=== PATIENT | male | born 1960 | race Caucasian/White ===

== ENCOUNTER 2022-06-26 14:50 | Emergency (ER) | payer BC, SELFPAY ==
[2022-06-26 14:50] VITALS: BP 173/121; PULSE 60; RESP 18; TEMP 36.6; O2SAT 98
[2022-06-26 15:03] VITALS: BP 173/126; PULSE 60; RESP 18; TEMP 36.6; O2SAT 98
--- NOTE | 2022-06-26 15:11 | ED.GENADULT ---
HPI - General Adult General Chief complaint: Ear Stated complaint: foreign body in ear Time Seen by Provider: 06/26/22 15:11 History of Present Illness HPI narrative: The patient is a 62-year-old male wears hearing aids. He has not been able to hear from his left ear for approximately 1-2 weeks. He had an audiology appointment today. They noticed foreign body in his left ear, and end of a Q-tip or gauze. He did last flush his ears approximately 1 week ago. That did not make a difference with respect to his hearing from the left ear. He does wear a hearing aid in the right ear which is working well. When he put the hearing aid in the left ear, it did not result in any improvement in his hearing. No other complaints. No fevers or chills. No drainage from the ears. Related Data Home Medications Medication Instructions Recorded Confirmed No Home Medications 06/26/22 06/26/22 Allergies Allergy/AdvReac Type Severity Reaction Status Date / Time No Known Allergies Allergy Unknown Unverified 06/26/22 15:13 Review of Systems Review of Systems: All systems reviewed & are unremarkable except as noted in HPI and below Constitutional: Constitutional: Reports no additional constitutional complaints, Denies anorexia, Denies body ache(s), Denies chills, Denies excessive sweating, Denies fatigue, Denies fever(s), Denies frequent falls, Denies headache(s), Denies malaise and Denies poor appetite Eyes: Eyes: Reports no additional eye complaints, Denies blurry vision, Denies change in vision, Denies irritation, Denies itchy eyes and Denies photophobia ENT: Reports system reviewed and no additional complaints, except as documented, Denies change in voice, Denies dysphagia, Denies vertigo, Denies dizziness, Denies ear discharge, Denies headache(s), Reports hearing loss ( Bilaterally worse left), Denies hoarseness, Denies nasal congestion, Denies neck pain, Denies sinus pressure, Denies sore throat and Denies throat swelling Cardiovascular: Cardiovascular: Reports no additional cardiovascular complaints, Denies chest pain, Denies syncope, Denies rapid heart rate, Denies irregular heart rhythm, Denies leg edema, Denies dyspnea and Denies slow heart rate Respiratory: Respiratory: Reports no additional respiratory complaints, Denies cough, Denies dyspnea, Denies stridor and Denies wheezing Gastrointestinal: Gastrointestinal: Reports no additional gastrointestinal complaints, Denies abdominal pain, Denies melena, Denies hematochezia, Denies dysphagia, Denies diarrhea, Denies nausea and Denies vomiting Genitourinary: Genitourinary: Denies hematuria, Denies oliguria, Denies dysuria, Denies flank pain, Denies urinary frequency and Denies urinary urgency Musculoskeletal: Musculoskeletal: Reports no additional musculoskeletal complaints, Denies abnormal gait, Denies back pain, Denies myalgias, Denies arthralgias, Denies joint swelling, Denies limited range of motion, Denies muscle cramps, Denies muscle weakness, Denies neck pain and Denies numbness Integumentary/Breasts: Skin/Breast: Reports system reviewed and no additional complaints, except as docu, Denies breast pain, Denies change in pigmentation, Denies pruritus, Denies erythema and Denies wounds Neurologic: Reports system reviewed and no additional complaints, except as documented, Reports Normal hearing present, Denies Abnormal speech present, Denies abnormal gait, Denies confusion, Denies vertigo, Denies dizziness, Denies syncope, Denies frequent falls, Denies headache(s), Denies focal weakness, Denies numbness and Denies paresthesias Psychiatric: Psychiatric: Reports no additional psychiatric complaints and Denies confusion Endocrine: Endocrine: Reports no additional endocrine complaints, Denies cold intolerance, Denies excessive sweating, Denies fatigue and Denies heat intolerance Hematologic/Lymphatic: Hematologic/Lymphatic: Reports no additional hematologic/lymphatic complaints, Denies easy ble
[2022-06-26 15:40] VITALS: BP 173/126; PULSE 60; RESP 18; TEMP 36.6; O2SAT 98
== END 2022-06-26 15:42 | disposition home or self-care (01) ==
LOC: CHSED 15:28
PROVIDERS: Emergency Provider Emergency Medicine; PCP Internal Medicine
DX: T16.2XXA Foreign body in left ear, initial encounter (principal); F17.200 Nicotine dependence, unspecified, uncomplicated; X58.XXXA Exposure to other specified factors, initial encounter
CPT/HCPCS: 69200; 99282

== ENCOUNTER 2022-12-25 13:24 | Emergency (ER) | payer BC, SELFPAY ==
--- NOTE | ~2022-12-25 | XR_ITS ---
EXAMINATION: XR foot LT min 3V DATE: 12/25/2022 14:42 INDICATION: Left foot pain. Injury. TECHNIQUE: 3 views of left foot were obtained. COMPARISON: Left calcaneus radiographs 11/21/2013 FINDINGS: Bone alignment is normal. No fracture. There is mild osteoarthritis of first metatarsophala ngeal joint and some of the interphalangeal joints. There are enthesophytes at the posterior and plan tar aspects of calcaneal tuberosity. IMPRESSION: 1. Mild polyarticular osteoarthritis. Reviewed, dictated and finalized at location A.
--- NOTE | ~2022-12-25 | CT_ITS ---
EXAMINATION: CT foot LT wo con DATE: 12/25/2022 15:10 INDICATION: Left foot swelling and pain. TECHNIQUE: Computed tomography (CT) of the left foot was performed without intravenous contrast. Auto mated exposure control and iterative reconstruction technique were employed. The dose-length product was 809.38 mGy-cm. COMPARISON: Left foot radiographs 12/25/2022 FINDINGS: Bone alignment is normal. No fracture. There is mild osteoarthritis of first metatarsophala ngeal joint and many of the interphalangeal joints and midfoot joints. There is moderate ankle joint osteoarthritis. There is enlargement of the distal Achilles tendon, consistent with tendinopathy. The re is an enthesophyte at the calcaneal attachment. There is heterotopic ossification distal to medial and lateral malleoli. There is soft tissue swelling of the foot and ankle, worst at the dorsal foot. IMPRESSION: 1. Particular osteoarthritis. 2. Severe distal Achilles tendinopathy. Reviewed, dictated and finalized at location A.
[2022-12-25 13:50] VITALS: BP 138/70; PULSE 89; RESP 18; TEMP 37.1; O2SAT 97
--- NOTE | 2022-12-25 15:11 | ED.GENADULT ---
HPI - General Adult General Chief complaint: Skin/Abscess/Foreign Body Stated complaint: L foot pain/Possible spider bite Time Seen by Provider: 12/25/22 14:20 Source: patient Mode of arrival: ambulatory Limitations: no limitations History of Present Illness HPI narrative: Patient is 62-year-old white male said he went to bed fine and then woke up around 1 or 2 in the morning pain in his left foot when he woke up this morning he had more pain and bruising over the dorsal aspect of his left foot with diffuse swelling of his foot and ankle. He had taken ibuprofen at 2:00 a.m.. Denies any trauma. He did have some trauma to her 3 weeks ago when he stubbed his little toe but had no residual problems after that. Says the pain is a 2/10 if he lays still and a 10/10 if he walks on it. He has been eating and drinking stooling and voiding fine thought maybe he had a fever last night because he felt warm and a little chilled. Denies any shortness of breath cough runny nose sore throat or bleeding or other bruising besides his foot. Denies any weakness or numbness. It hurts to walk on it. Denies any problems talking seeing or hearing. He says he is generally healthy denies any heart lung kidney liver disease diabetes hypertension thyroid disease are in asthma. Takes a multi vitamin an aspirin a day. Denies any other complaints. Related Data Allergies Allergy/AdvReac Type Severity Reaction Status Date / Time No Known Allergies Allergy Unknown Unverified 06/26/22 15:13 Review of Systems Review of Systems: All systems reviewed & are unremarkable except as noted in HPI and below [facility] Family History Family History Father Diabetes mellitus Hypertension Social History Social History Smoking status: Light tobacco smoker Alcohol intake: current Exam Narrative: ? White Male patient no apparent distress.? Head normocephalic, atraumatic.? Eyes conjunctiva pink sclera nonicteric.? Extraocular movements are intact.? Ears externally normal.? Oropharynx is clear with moist mucous membranes without exudates.? Neck is supple nontender no lymphadenopathy.? Back is nontender.? Lungs are clear.? Heart is regular rate and rhythm without murmurs gallops or rubs.? Chest wall is nontender.? Abdomen is soft and nontender no hepatosplenomegaly or masses no CVA tenderness no abdominal bruits.? Extremities: Left foot has ecchymosis over the distal 2nd 3rd and 4th meta tarsal area which is tender his foot is diffusely tender and his ankle is diffusely tender he has mild swelling of the distal leg. His left foot and distal leg is warm to touch and diffusely swollen. DP and PT pulses are +2 equal bilateral. Both his Achilles tendons are deformed and mildly tender.? Skin is warm and dry without rashes or lesions.? Neurological patient is alert and oriented x4.? Motor and sensory grossly intact.? Gait is antalgic. Course Vital Signs Vital signs: Vital Signs Temperature 37.1 C 12/25/22 13:50 Pulse Rate 89 12/25/22 13:50 Respiratory Rate 18 12/25/22 13:50 Blood Pressure 138/70 12/25/22 13:50 Pulse Oximetry 97 12/25/22 13:50 Oxygen Delivery Room Air 12/25/22 13:50 Temperature 37.1 C 12/25/22 13:50 Pulse Rate 89 12/25/22 13:50 Respiratory Rate 18 12/25/22 13:50 Blood Pressure 138/70 12/25/22 13:50 Pulse Oximetry 97 12/25/22 13:50 Oxygen Delivery Room Air 12/25/22 13:50 Medical Decision Making [facility] Narrative Medical decision making narrative: patient was placed in room 5 history and physical was done. X-ray of his left foot was done which showed polyarticular arthritis no fractures. He was then sent for a CT of his left foot. WBCs 31.5 H&H was normal platelets were normal.? Coags were normal. Creatinine 1.73 GFR 40, albumin 3.2 rest of CMP was normal X-ray left foot showed ?Bone alig
[2022-12-25 15:24] LABS: Hemoglobin 15.3 g/dL (14.0-18.0); Mean Corpuscular HGB Conc 34.8 g/dL (32.0-36.0); Mean Corpuscular Hemoglobin 32.4 pg (27.0-31.0); Mean Corpuscular Volume 93.2 fL (78.0-102.0); Mean Platelet Volume 10.1 fl (8.7-11.0); Platelet Count Result 194 K/mm3 (150-420); Red Blood Count 4.72 M/mm3 (4.70-6.10); Red Cell Distribution Width 13.8 % (11.6-14.4)
[2022-12-25 15:29] LABS: White Blood Count 31.5 K/mm3 (4.8-10.8)
[2022-12-25 15:39] LABS: INR 1.1; Partial Thromboplastin Time 29.3 SEC (23.90-30.70); Prothrombin Time 11.8 Seconds (9.50-12.10)
[2022-12-25 15:50] LABS: Alanine Aminotransferase 18 U/L (16-63); Albumin Level 3.2 g/dL (3.4-5.0); Alkaline Phosphatase 75 U/L (46-116); Anion Gap 11 mmol/L (8-16); Aspartate Amino Transferase 17 U/L (15-37); Bilirubin,Total 0.9 mg/dL (0.00-1.00); Blood Urea Nitrogen 18 mg/dL (7-18); Calcium 8.5 mg/dL (8.5-10.1); Carbon Dioxide 27 mmol/L (21-32); Chloride 104 mmol/L (98-108); Estimated CRCL calculation 51 ml/min; Estimated Glomerular Filt Rate 40; Glucose 108 mg/dL (70-99); Osmolality Calculated 296 mOsm/kg (285-295); Potassium 4.4 mmol/L (3.5-5.1); Sodium 142 mmol/L (136-145); Total Protein 6.7 g/dL (6.4-8.2)
[2022-12-25 16:30] VITALS: BP 140/74; PULSE 84; RESP 20; TEMP 37.1; O2SAT 98
[2022-12-25] MEDS: cefTRIAXone 1 GM, LIDOCAINE HCL 1% LOCAL INJ 2.1 ML IM (16:33)
== END 2022-12-25 16:35 | disposition home or self-care (01) ==
PROVIDERS: Emergency Provider Emergency Medicine; PCP Internal Medicine
DX: L03.116 Cellulitis of left lower limb (principal); S90.32XA Contusion of left foot, initial encounter; M19.072 Primary osteoarthritis, left ankle and foot; D72.829 Elevated white blood cell count, unspecified; W22.09XA Striking against other stationary object, initial encounter
CPT/HCPCS: 36415; 73630; 73700; 80053; 85027; 85610; 85730; 96372; 99284; J0696

== ENCOUNTER 2022-12-31 15:10 | Inpatient (IN) | payer BC, SELFPAY ==
--- NOTE | ~2022-12-31 | CT_ITS ---
EXAMINATION: CT foot LT w con DATE: 01/01/2023 10:34 INDICATION: Left foot swelling and pain. TECHNIQUE: Computed tomography (CT) of the left foot was performed with 100 mL Omnipaque 350 intraven ous contrast. Automated exposure control and iterative reconstruction technique were employed. The do se-length product was 776.91 mGy-cm. COMPARISON: Left foot radiographs 12/25/2022, CT 12/25/2022 FINDINGS: There is a skin defect anterior to the distal tibia. There is skin thickening and subcutane ous fat stranding in the dorsum of the foot. There skin blisters in the dorsum of the foot. There is severe distal Achilles tendinopathy. Bone alignment is normal. No fracture. There is moderate osteoar thritis of first metatarsophalangeal joint and mild osteoarthritis of ankle joint, subtalar joint, an d some the interphalangeal joints. IMPRESSION: 1. Cellulitis of left foot with skin blisters in the dorsum of the foot. 2. No evidence of osteomyelitis. Reviewed, dictated and finalized at location A.
[2022-12-31 15:17] VITALS: BP 159/102; PULSE 85; RESP 24; TEMP 36.6; O2SAT 98
[2022-12-31] MEDS: TETANUS,DIPHTHERIA,AC PERTUSSIS ADULT 0.5 ML (ADACEL) IM (15:47)
[2022-12-31 15:49] LABS: Hematocrit 46.9 % (40.0-54.0); Hemoglobin 15.9 g/dL (14.0-18.0); Mean Corpuscular HGB Conc 33.9 g/dL (32.0-36.0); Mean Corpuscular Hemoglobin 31.4 pg (27.0-31.0); Mean Corpuscular Volume 92.7 fL (78.0-102.0); Mean Platelet Volume 10.1 fl (8.7-11.0); Platelet Count Result 334 K/mm3 (150-420); Red Blood Count 5.06 M/mm3 (4.70-6.10); Red Cell Distribution Width 13.5 % (11.6-14.4); White Blood Count 13.2 K/mm3 (4.8-10.8)
[2022-12-31 16:03] LABS: Partial Thromboplastin Time 28.5 SEC (23.90-30.70); Prothrombin Time 11.2 Seconds (9.50-12.10)
[2022-12-31 16:04] LABS: Alanine Aminotransferase 25 U/L (16-63); Albumin Level 2.7 g/dL (3.4-5.0); Alkaline Phosphatase 114 U/L (46-116); Anion Gap 11 mmol/L (8-16); Aspartate Amino Transferase 18 U/L (15-37); Bilirubin,Total 0.3 mg/dL (0.00-1.00); Blood Urea Nitrogen 25 mg/dL (7-18); Carbon Dioxide 24 mmol/L (21-32); Chloride 106 mmol/L (98-108); Estimated CRCL calculation 82 ml/min; Estimated Glomerular Filt Rate > 60; Glucose 109 mg/dL (70-99); Osmolality Calculated 297 mOsm/kg (285-295); Potassium 3.8 mmol/L (3.5-5.1); Sodium 141 mmol/L (136-145); Total Protein 7.5 g/dL (6.4-8.2)
[2022-12-31 16:07] LABS: Lactic Acid Reflex 0.7 mmol/L (0.4-2.0)
--- NOTE | 2022-12-31 16:07 | ED.SKABFB ---
HPI - Skin/Abscess/Foreign Bdy General Chief complaint: Skin/Abscess/Foreign Body Stated complaint: left foot bruising, swelling, pain Time Seen by Provider: 12/31/22 15:25 Source: patient Mode of arrival: wheelchair Limitations: no limitations History of Present Illness HPI narrative: this is a 62 year male that presents with some left lower extremity warmth and tenderness with some left anterior foot blister which appears to be a blood blister symptoms started approximately 1 week ago and was seen in the ER and started on p.o. Augmentin, had a follow-up with his primary care today and appears that blood blister has developed anterior surface of his left foot and cellulitis that extends up to his mid navarro that is red warm and tender with no calf pain or calf tenderness has a good strong brisk pedal pulse on the left. Patient was taking his p.o. antibiotics and has had no significant relief, patient is currently afebrile but does feel warm to touch. Otherwise no chest pain no shortness of breath no abdominal pain no nausea vomiting. MD complaint: abscess/boil Onset (ago): day(s) Tetanus up to date: no Location: LLE and L foot Severity: moderate Severity scale (1-10): 8 Quality: burning and aching Pain Consistency: constant Related Data Allergies Allergy/AdvReac Type Severity Reaction Status Date / Time No Known Allergies Allergy Unknown Verified 12/31/22 15:44 Review of Systems Review of Systems: All systems reviewed & are unremarkable except as noted in HPI and below PMFSH Past Medical History Medical History Patient denies medical problems Family History Family History Father Diabetes mellitus Hypertension Social History Social History Smoking status: Former smoker Additional smoking assessment comments: Quit 25yrs ago. Smokes occasional cigar. Alcohol intake: current Exam Const: General: no acute distress Nutritional Appearance: well nourished Orientation/consciousness: patient oriented x3 Limitations: no limitations Neck: Neck: normal visual inspection and no lymphadenopathy Chest: Chest palpation & inspection: normal inspection of the chest Resp: Effort & Inspection: normal respiratory effort Auscultation: clear to auscultation bilaterally Cardio: Rate: regular rate Rhythm: regular rhythm GI: Auscultation: normal bowel sounds : General: Yes bladder normal to palpation Skin: Wounds: wounds noted Other: a blister anterior left foot but is tender and there is tenderness with erythema and redness with some swelling of his left leg with no calf pain no calf tenderness. Neuro: General: patient oriented x3 Cranial nerves: Yes Nystagmus not present Extrem: General: edema Course Course Emergency Course: Patient has a cellulitis with a warm red left lower extremity with a blister to his anterior left foot, labs reviewed white count was [id number], patient is afebrile and patient received a dose of IV ceftriaxone. Vital Signs Vital signs: Vital Signs Temperature 36.6 C 12/31/22 15:17 Pulse Rate 85 12/31/22 15:17 Respiratory Rate 24 H 12/31/22 15:17 Blood Pressure 159/102 H 12/31/22 15:17 Pulse Oximetry 98 12/31/22 15:17 Oxygen Delivery Room Air 12/31/22 15:17 Temperature 36.6 C 12/31/22 15:17 Pulse Rate 85 12/31/22 15:17 Respiratory Rate 24 H 12/31/22 15:17 Blood Pressure 159/102 H 12/31/22 15:17 Pulse Oximetry 98 12/31/22 15:17 Oxygen Delivery Room Air 12/31/22 15:17 MDM - Skin/Abscess/Foreign Bdy Lab Data 12/31/22 15:43 12/31/22 15:43 Labs: Lab Results 12/31/22 Range/Units 15:43 WBC 13.2 H (4.8-10.8) K/mm3 RBC 5.06 (4.70-6.10) M/mm3 Hgb 15.9 (14.0-18.0) g/dL Hct 46.9 (40.0-54.0) % MCV 92.7 (78.0-102.0) fL MCH
[2022-12-31 16:09] LABS: CRP 7.6 mg/dL (0.0-0.9)
[2022-12-31 16:14] LABS: Band Neutrophils Percent 0 % (0-6); Basophils Absolute Manual 0.13 K/mm3 (0-0.1); Basophils Percent Manual 1 % (0-1); Eosinophils Absolute Manual 0.39 K/mm3 (0.02-0.5); Eosinophils Percent Manual 3 % (1-6); Lymphocytes Absolute Manual 1.98 K/mm3 (1.1-4.5); Lymphocytes Percent Manual 15 % (18-44); Metamyelocytes Percent 2 %; Neutrophils Absolute Manual 8.97 K/mm3 (1.3-6.7); Neutrophils Percent Manual 68 % (46-73); Total Cells Counted 100
[2022-12-31 16:15] LABS: Atypical Lymphocytes Present; Monocytes Absolute Manual 1.45 K/mm3 (0.1-0.90); Monocytes Percent Manual 11 % (3-9); Platelet Estimate Adequate (Adequate); Schistocytes None Seen (NORMAL)
[2022-12-31 16:32] VITALS: BP 154/101; PULSE 76; RESP 20; TEMP 36.4; O2SAT 96
[2022-12-31 16:55] VITALS: BP 160/98; PULSE 85; RESP 16; TEMP 36.4; O2SAT 97; BMI 33.0
--- NOTE | 2022-12-31 16:55 | ADMGEN ---
This patient, Lester D Parrish, was admitted to 2nd Floor Room 205-1. Patient/family oriented to hospital policies and general routines including ID bracelet, bed and alarms, visiting hours, pain management, procedures, bathroom and other care routines, personal items, smoking policy, room service/diet, and visiting hours. Information on how to activate the Rapid Response Team has been discussed. Patient/Family are encouraged to report perceived risks to care and to ask questions if they do not understand what they are told or what they should do.
[2022-12-31] MEDS: traMADol HCL (*CRX) 50 MG TABLET PO (18:51)
[2022-12-31 20:00] VITALS: PULSE 85; RESP 16; O2SAT 97
[2023-01-01] VITALS (7 sets, daily range): BP systolic 138–178; BP diastolic 78–101; PULSE 65–85; RESP 17–18; TEMP 35.8–36.6; O2SAT 96–97
--- NOTE | 2023-01-01 00:07 | PC.NURSE ---
Pt asleep and respirations are even and unlabored. No signs of discomfort noted
[2023-01-01] MEDS: ACETAMINOPHEN 325 MG TABLET 650 MG PO ×4 (00:24→15:55)
--- NOTE | 2023-01-01 00:58 | PC.NURSE ---
Pt resting quietly and doesnt voice any c/o discomfort.
--- NOTE | 2023-01-01 01:17 | PC.NURSE ---
Pt asleep and no signs of discomfort noted.Tylenol effective in relieving pt's left foot pain
--- NOTE | 2023-01-01 02:00 | PC.NURSE ---
Pt asleep and no signs of discomfort noted.
--- NOTE | 2023-01-01 04:35 | PC.NURSE ---
Pt called and said he was having pain in his left foot again and asked for tylenol. Pt given tylenol 650 mg po to relieve left foot pain
[2023-01-01 05:33] LABS: Hematocrit 44.5 % (40.0-54.0); Hemoglobin 15.1 g/dL (14.0-18.0); Mean Corpuscular HGB Conc 33.9 g/dL (32.0-36.0); Mean Corpuscular Hemoglobin 31.7 pg (27.0-31.0); Mean Corpuscular Volume 93.5 fL (78.0-102.0); Mean Platelet Volume 9.6 fl (8.7-11.0); Platelet Count Result 320 K/mm3 (150-420); Red Blood Count 4.76 M/mm3 (4.70-6.10); Red Cell Distribution Width 13.6 % (11.6-14.4); White Blood Count 10.5 K/mm3 (4.8-10.8)
[2023-01-01 05:55] LABS: Band Neutrophils Percent 0 % (0-6); Basophils Percent Manual 0 % (0-1); Eosinophils Absolute Manual 0.31 K/mm3 (0.02-0.5); Eosinophils Percent Manual 3 % (1-6); Lymphocytes Absolute Manual 1.89 K/mm3 (1.1-4.5); Lymphocytes Percent Manual 18 % (18-44); Metamyelocytes Percent 1 %; Monocytes Absolute Manual 1.47 K/mm3 (0.1-0.90); Monocytes Percent Manual 14 % (3-9); Neutrophils Absolute Manual 6.72 K/mm3 (1.3-6.7); Neutrophils Percent Manual 64 % (46-73)
[2023-01-01 05:56] LABS: Platelet Estimate Adequate (Adequate)
--- NOTE | 2023-01-01 06:02 | PC.NURSE ---
Pt up to the bathroom with the walker and assist of one. Pt passed a small, solid stool and returned to bed. Left remains warm, swollen and tender and was elevated on a pillow.
--- NOTE | 2023-01-01 09:00 | PC.NURSE ---
Using sterile needle, aspirated approximately 3 ml of fluid from blister on top of pt's foot. Per CHOKER SETTER at bedside, Kelsy Dykes, this nurse manipulated blister to drain from aspiration site. Fluid collected sent to lab for culture.
[2023-01-01] MEDS: ENOXAPARIN 40 MG/0.4 ML SYRINGE SUB-Q (09:09)
--- NOTE | 2023-01-01 09:33 | P.PNINF_ITS ---
Pharmacy ID Consult - Stewardship Interventions Type of Interventions: [facility] ID Note: Subjective Pharmacy was consulted by Kelsy Dykes regarding infectious diseases for Lester Parrish. Lester Hampton Parrish is a 62 year old M with concerns regarding purulent SSTI. Background The patient is currently receiving Ceftriaxone 1g. The patient's PMH includes 1 week history of lower extremity cellulitis with potential blister - maybe blood blister and was given Augmentin previously from ER visit ~12/25 without significant relief. Additionally, infection was initially thought to be more cellulitis without purulence however, upon examination, fluid was noted and aspirated revealing a yellow/pale/guevara fluid that was removed and is to be sent for culture for the provider. Patient has been afebrile since arrival and blood cultures have been obtained as well. Laboratory Tests 12/31/22 01/01/23 15:43 05:32 WBC 13.2 H 10.5 Creatinine 1.05 Assessment/Recommendation/Discussion Spoke with provider that this is likely an SSTI like an abscess w/ cellulitis or purulent cellulitis with high likelihood of staphylococcus aureus and given local resistance trends (MRSA rate of 53.5% per 2021 [facility] Antibiogram), Augmentin is not likely to cover the likely pathogen. In order to ensure appropriate coverage, ceftriaxone dose increased to 2g q24h, vancomycin initiated for SSTI and po metronidazole started and ordered. Will follow blood and future fluid culture. Please consider reaching out if there are any additional recommendations needed or new information comes to light. Thank you for the interesting consult. Ti Ferrer, PharmD Infectious Disease/Antimicrobial Stewardship Pharmacist 01/01/23; 0933 WBC 10.5 K/mm3 (4.8-10.8) 01/01/23 05:32 Creatinine 1.05 mg/dL (0.70-1.30) 12/31/22 15:43 Estim Creat Clear Calc 82 ml/min 12/31/22 15:43
[2023-01-01] MEDS: cefTRIAXone 2 GM/NS 100 ML 2 GM/100 ML BAG IVPB (10:12)
--- NOTE | 2023-01-01 12:12 | PM.IMHP ---
H&P: HPI History of Present Illness Date/Time: 01/01/23 12:12 Chief Complaint: left foot pain Narrative: This is a 62 year old that felt pain about 1 week ago in the middle of the night and noticed swelling in his foot. Patient also noticed that the swelling continue to progressively get worse. He reported to the emergency room in which he was informed he had cellulitis and was sent home on augmenting received a injection of antibiotic and went home. Patient has not seen a PCP in years and states that he really does not have much of medical history. while here it was noticed that he has hypertension originally his WBC was 31k currently 10.5 but he has been on antibiotics Looking at his foot he has erythema with bruising noted from his toes to his ankle including fluid filled blister 3-4 different ones that are tout. I did aspirate 2.5 ml of clear yellow fluid and sent to lab for cultures. Patient has been placed on Vancomycin and increased his Rocephin to 2gm and oral Flagyl . If cultures come back positive for pseudomonas we will switch the Rocephin to Cefepime. I discussed this plan with infectious disease pharmacist who is in agreement. I also received permission from patient and discussed his case with DR. Banuelos who is a foot and ankle surgeon who is willing to see him outpatient in his clinic in [facility] . Patient had a CT scan completed in which it show cellulitis at this time with no evidence of osteomyelitis . We will continue to monitor and awaiting results from the cultures. Patient denies any injuries and does not remember any bites and he fishes a lot. Labs continue to look well and we will await culture results. Review of Systems Review of Systems: foot pain with drainage right brusing note All systems reviewed & are unremarkable except as noted in HPI and below [facility] Past Medical History Medical History (Updated 01/21/23 @ 14:09 by Harsha Bravo DO) Pain of left heel Patient denies medical problems Family History Family History Father Diabetes mellitus Hypertension Social History Social History Smoking packs per day: 1 Smoking cigarettes per day: 20.0 Years smoked: 20 Smoking pack-years: 20.00 Smoking status: Former smoker Tobacco type: cigarettes Additional smoking assessment comments: Quit 25yrs ago. Smokes occasional cigar. Alcohol intake: never Substance use: never Lack of Transportation: No Lack of Food: Never True Current Housing: I Have Housing Concerned About Future Housing: No Difficulty Paying Gas/Electric Bills: No Difficulty Paying for Meds: No Currently Unemployed: No Education: Associate Degree Difficulty w/ Childcare or Family Care: No Spiritual care concerns: No Meds Home Medications and Allergies Home Medications Medication Instructions Recorded Confirmed Type docusate sodium 100 mg capsule 100 mg PO Q12H PRN Constipation 01/02/23 Rx tramadol 50 mg tablet 50 mg PO Q6H PRN Pain Rated 4-6 01/02/23 Rx trazodone 50 mg tablet 50 mg PO HS PRN Insomnia 01/02/23 Rx Saccharomyces boulardii 250 mg 250 mg PO BID 01/14/23 History capsule (Florastor) acetaminophen 325 mg capsule 650 mg PO Q6H PRN 01/14/23 History amoxicillin 875 mg-potassium 1 tablet PO Q12H 01/14/23 History clavulanate 125 mg tablet doxycycline hyclate 100 mg tablet 100 mg PO Q12H 01/14/23 History hydrocodone 5 mg-acetaminophen 325 1 tablet PO Q6H PRN 01/14/23 History mg tablet tadalafil 5 mg tablet (Cialis) 5 mg PO DAILY PRN sexual activity 01/14/23 01/14/23 Rx #30 tabs lisinopril 20 mg tablet 20 mg PO DAILY #90 tabs 01/21/23 01/21/23 Rx Allergies Allergy/AdvReac Type Severity Reaction Status Date / Time No Known Allergies Allergy Unknown Verified 01/14/23 13:44 Vital Signs Vital Signs - 24 hr 12/31/22 15:17 12/31/22 16:32 0
[2023-01-01] MEDS: metroNIDAZOLE 250 MG TABLET 500 MG PO ×2 (13:31→21:36)
[2023-01-01] MEDS: amLODIPine BESYLATE 5 MG TABLET PO (13:31)
[2023-01-01] MEDS: traMADol HCL (*CRX) 50 MG TABLET PO (16:57)
[2023-01-01] MEDS: traZODone HCL 50 MG TABLET PO (21:36)
[2023-01-01] MEDS: MORPHINE SULFATE (*CRX) 2 MG/ML INJ IV PUSH (21:36)
[2023-01-01] MEDS: DOCUSATE SODIUM 100 MG CAPSULE PO (21:36)
[2023-01-02] VITALS: BP 154/97; PULSE 65; RESP 17; TEMP 36.7; O2SAT 97
[2023-01-02] MEDS: ACETAMINOPHEN 325 MG TABLET 650 MG PO ×2 (00:37→08:48)
--- NOTE | 2023-01-02 00:38 | PC.NURSE ---
Pt states morphine was not very effective for pain relief, PRN Tylenol given per request.
[2023-01-02] MEDS: metroNIDAZOLE 250 MG TABLET 500 MG PO ×2 (05:20→13:57)
[2023-01-02] MEDS: MORPHINE SULFATE (*CRX) 2 MG/ML INJ IV PUSH (05:21)
[2023-01-02 05:25] LABS: Estimated CRCL calculation 75 ml/min; Estimated Glomerular Filt Rate > 60
[2023-01-02 08:00] VITALS: BP 144/102; PULSE 71; RESP 14; TEMP 36.5; O2SAT 96
[2023-01-02] MEDS: cefTRIAXone 2 GM/NS 100 ML 2 GM/100 ML BAG IVPB (08:41)
[2023-01-02] MEDS: amLODIPine BESYLATE 5 MG TABLET PO (08:48)
[2023-01-02] MEDS: ENOXAPARIN 40 MG/0.4 ML SYRINGE SUB-Q (08:49)
--- NOTE | 2023-01-02 08:58 | PM.IMPN ---
Subjective Date/time seen: 01/02/23 08:58 Objective Data Vital Signs Vital Signs: Vital Signs - 24 hr 01/01/23 11:00 01/01/23 11:02 01/01/23 16:00 Temperature 36.6 C Pulse Rate 85 65 Respiratory Rate 18 Blood Pressure 178/101 H 149/91 H 160/92 H Pulse Oximetry 97 Oxygen Delivery Room Air 01/01/23 19:40 01/02/23 00:00 01/02/23 08:00 Temperature 36.7 C 36.5 C Pulse Rate 65 65 71 Respiratory Rate 18 17 14 Blood Pressure 154/97 H 144/102 H Pulse Oximetry 97 97 96 Oxygen Delivery Room Air Room Air Room Air Intake/Output Intake/Output: Intake & Output 12/30/22 12/31/22 01/01/23 01/02/23 23:59 23:59 23:59 23:59 Intake Total 1010 4050 550 Output Total 500 1225 1200 Balance 510 2825 -650 Meds/Results Medications: Active Medications Generic Name Dose Route Start Last Admin Trade Name Freq PRN Reason Stop Dose Admin Acetaminophen 650 mg 12/31/22 16:28 01/02/23 08:48 Acetaminophen 325 Mg Tablet PO 650 mg Q4H PRN Administration Mild Pain (1-3) or Fever Amlodipine Besylate 5 mg 01/01/23 12:15 01/02/23 08:48 Amlodipine Besylate 5 Mg Tablet PO 5 mg QAM RADHA Administration Docusate Sodium 100 mg 01/01/23 19:31 01/01/23 21:36 Docusate Sodium 100 Mg Capsule PO 100 mg Q12H PRN Administration Constipation Enoxaparin Sodium 40 mg 01/01/23 09:00 01/02/23 08:49 Enoxaparin 40 Mg/0.4 Ml Syringe SUB-Q 40 mg DAILY RADHA Administration Vancomycin HCl 1,500 mg in 500 mls @ 250 mls/hr 01/01/23 10:00 01/01/23 22:37 Vancomycin 1,500 Mg/D5w 500 Ml IVPB Infused Q12HR RADHA Infusion Ceftriaxone Sodium 2 gm in 100 mls @ 200 mls/hr 01/01/23 10:00 01/02/23 08:41 Rocephin 2 Gm/Ns 100 Ml IVPB 100 mls/hr DAILY RADHA Administration Metronidazole 500 mg 01/01/23 14:00 01/02/23 05:20 Metronidazole 250 Mg Tablet PO 500 mg Q8HR RADHA Administration Morphine Sulfate 2 mg 01/01/23 19:31 01/02/23 05:21 Morphine Sulfate (*Crx) 2 Mg/Ml Inj IV PUSH 2 mg Q4H PRN Administration Pain Rated 7-10 Ondansetron HCl 4 mg 12/31/22 16:28 Ondansetron Inj 4 Mg/2 Ml Vial IV PUSH Q6H PRN Nausea And Vomiting Tramadol HCl 50 mg 12/31/22 16:31 01/01/23 16:57 Tramadol Hcl (*Crx) 50 Mg Tablet PO 50 mg Q6H PRN Administration Pain Rated 4-6 Trazodone HCl 50 mg 12/31/22 20:25 01/01/23 21:36 Trazodone Hcl 50 Mg Tablet PO 50 mg HS PRN Administration Insomnia Radiology Results: ITS Impressions Foot CT 01/01/23 10:39 IMPRESSION: 1. Cellulitis of left foot with skin blisters in the dorsum of the foot. 2. No evidence of osteomyelitis. Labs Labs: Laboratory Results - last 24 hr 01/02/23 05:06 Creatinine 1.14 Estim Creat Clear Calc 75 Estimated GFR > 60
[2023-01-02] MEDS: HYDROcodone/acetaminophen (*CRX) 7.5-325 MG TABLET 1 TAB PO (11:40)
--- NOTE | 2023-01-02 12:54 | PM.TDS ---
Transfer Discharge Sum: Prov Provider Date of admission: 01/01/23 12:28 Primary care physician: Dario Joaquin APRN Admitting clinician: Calos Haley MD Attending physician on admission: Denilson Haley Consults: 01/01/23 09:19 Consult Infectious Disease Pharmacist Routine Comment: cellulitis wound fluid blister Attending physician on discharge: Denilson Haley Discharging clinician: David Blanco Anticipated date of transfer: 01/02/23 Receiving physician/facility: [facility]--Dr. Vonda Dominguez, [facility] Hospitalist DS: Admitting Diagnosis Discharge Date 01/02/2023 Admitting Diagnosis Left foot cellulitis with abscess DS: Discharge Diagnosis Discharge Diagnosis (1) Cellulitis: Qualifiers: Laterality: left Site of cellulitis: extremity Site of cellulitis of extremity: lower extremity Qualified Code(s): L03.116 - Cellulitis of left lower limb Code(s): L03.90 - Cellulitis, unspecified Status: Acute (2) Bullae: Code(s): R23.8 - Other skin changes Status: Acute (3) Abscess of skin or subcutaneous tissue: Qualifiers: Laterality: left Site of cutaneous abscess: extremity Site of cutaneous abscess of extremity: lower extremity Qualified Code(s): L02.416 - Cutaneous abscess of left lower limb Code(s): L02.91 - Cutaneous abscess, unspecified Status: Acute Plan Transfer to [facility] to Hospitalist Service with surgical consult (Plastics or Podiatry), vascular services available if needed. Dr. Charles with Plastic Surgery agreed to have Plastic Resident see patient on arrival. Transfer Discharge Sum: Med Medications Active and Home Medications: Home Medications amoxicillin 875 mg-potassium clavulanate 125 mg tablet 1 tablet PO Q12H 10 days #20 tabs 12/25/22 [Rx Confirmed 12/31/22] Active Medications Acetaminophen (Acetaminophen 500 Mg Tablet) 1,000 mg PO Q6H PRN PRN Reason: Pain 1-3 or Fever Hydrocodone Bitart/Acetaminophen (Hydrocodone/Acetaminophen (*Crx) 7.5-325 Mg Tablet) 1 tab PO Q4H PRN PRN Reason: Pain Rated 7-10 Last Admin: 01/02/23 11:40 Dose: 1 tab Amlodipine Besylate (Amlodipine Besylate 5 Mg Tablet) 5 mg PO QAM [facility] Last Admin: 01/02/23 08:48 Dose: 5 mg Docusate Sodium (Docusate Sodium 100 Mg Capsule) 100 mg PO Q12H PRN PRN Reason: Constipation Last Admin: 01/01/23 21:36 Dose: 100 mg Enoxaparin Sodium (Enoxaparin 40 Mg/0.4 Ml Syringe) 40 mg SUB-Q DAILY [facility] Last Admin: 01/02/23 08:49 Dose: 40 mg Vancomycin HCl (Vancomycin 1,500 Mg/D5w 500 Ml) 1,500 mg in 500 mls @ 250 mls/hr IVPB Q12HR [facility] Last Infusion: 01/02/23 11:39 Dose: Infused Ceftriaxone Sodium (Rocephin 2 Gm/Ns 100 Ml) 2 gm in 100 mls @ 200 mls/hr IVPB DAILY [facility] Last Infusion: 01/02/23 09:20 Dose: Infused Metronidazole (Metronidazole 250 Mg Tablet) 500 mg PO Q8HR [facility] Last Admin: 01/02/23 05:20 Dose: 500 mg Morphine Sulfate (Morphine Sulfate (*Crx) 2 Mg/Ml Inj) 2 mg IV PUSH Q4H PRN PRN Reason: Pain Rated 7-10 Last Admin: 01/02/23 05:21 Dose: 2 mg Ondansetron HCl (Ondansetron Inj 4 Mg/2 Ml Vial) 4 mg IV PUSH Q6H PRN PRN Reason: Nausea And Vomiting Tramadol HCl (Tramadol Hcl (*Crx) 50 Mg Tablet) 50 mg PO Q6H PRN PRN Reason: Pain Rated 4-6 Last Admin: 01/01/23 16:57 Dose: 50 mg Trazodone HCl (Trazodone Hcl 50 Mg Tablet) 50 mg PO HS PRN PRN Reason: Insomnia Last Admin: 01/01/23 21:36 Dose: 50 mg Transfer Discharge Sum: Hosp Hospital Course Hospital course: Lester Parrish is a 62 year old male admitted to the hospital for worsening cellulitis with possible abscess formation. Patient reports that a week and a half ago he noticed a red on his fluid and it has progressed steadily with formation an apparent hemorrhagic bullae that has continued to spread despite antibiotics. Patient had been seen on December 25 and started on Augmentin after receiving 1g of IM Rocephin for presu
--- NOTE | 2023-01-02 14:36 | PC.NURSE ---
Patient signed consent to transfer to [facility] room 836. Radiology aware of request to push reports to [facility]. Report given to Shahida from [facility].
--- NOTE | 2023-01-02 15:18 | PC.NURSE ---
Patient transferred to [facility] by [facility]. Able to transfer self to [facility]
== END 2023-01-02 15:10 | disposition short-term general hospital (02) | DRG 603 ==
LOC: CHSED 16:24 → CHS2ND 16:52
PROVIDERS: Nurse Practitioner Family; Admitting Provider Internal Medicine; Emergency Provider Emergency Medicine; PCP Nurse Practitioner Family; Visit Provider Internal Medicine
DX: L03.116 Cellulitis of left lower limb (principal); L02.612 Cutaneous abscess of left foot; R23.8 Other skin changes
CPT/HCPCS: 10160; 36415; 73701; 80053; 82565; 83605; 85025; 85610; 85730; 86140; 87040; 87070; 87205; 90471; 90715; 96365; 96366; 96367; 96372; 99285; A9270; G0378; J0696; J1650; J2270; J3370; Q9967

== ENCOUNTER 2023-01-22 09:49 | Outpatient (CLI) | payer MEDICARE, SELFPAY ==
--- NOTE | ~2023-01-22 | XR_ITS ---
EXAMINATION: XR foot LT min 3V DATE: 01/22/2023 10:10 INDICATION: Left heel pain. Bacterial infection in foot. TECHNIQUE: 4 views of left foot were obtained. COMPARISON: Left foot radiographs 12/25/2022 FINDINGS: Bone alignment is normal. No fracture. There is moderate osteoarthritis of first metatarsop halangeal joint. There is mild osteoarthritis of some the interphalangeal joints and midfoot joints. There is moderate osteoarthritis of third distal interphalangeal joint. There are enthesophytes at th e posterior and plantar aspects of calcaneal tuberosity. There is soft tissue swelling at the Jey s attachment to calcaneus. IMPRESSION: 1. No evidence of osteomyelitis. 2. Polyarticular osteoarthritis. Reviewed, dictated and finalized at location A.
== END 2023-01-22 09:50 | disposition home or self-care (01) ==
LOC: CHSIMG 09:52
PROVIDERS: PCP Family Medicine; Visit Provider Family Medicine
DX: M19.072 Primary osteoarthritis, left ankle and foot (principal); M79.672 Pain in left foot
CPT/HCPCS: 73630

== ENCOUNTER 2023-06-14 07:50 | Outpatient (RCR) | payer MEDICARE, SELFPAY ==
--- NOTE | 2023-06-14 09:08 | OPREHPOC ---
Outpatient Therapy Plan of Care This is a Multidisciplinary Plan of Care that may contain components documented by all disciplines (PT, OT, and ST.) PT Problem 1 PT Problem #1 Knowledge Deficit PT Goal 1 Goal Patient to demonstrate independence with HEP Target Visit 5 PT Problem 2 PT Problem #2 Pain PT Goal 1 Goal Patient to report highest pain at 2/10 at end of day to improve ability to complete house hold tasks Target Visit 10 PT Problem 3 PT Problem #3 Impaired Range of Motion PT Goal 1 Goal Patient to demosntrate 10 deg of L ankle DF AROM to improve ability to ambulate prolonged distances and navigate stairs at PLOF Target Visit 10 PT Problem 4 PT Problem #4 Impaired Strength PT Goal 1 Goal Patient to demonstrate 25 L SL heel raises to improve ability to ambulate to grocery shop without rest Target Visit 10 PT Problem 5 PT Problem #5 Impaired Functional Mobil PT Goal 1 Goal 1. Patient to complete 1200' during 6 min walk test 2. Patient to report ability to ambulate >1 mile to return to previous exercise level 3. Patient to demonstrate 20% improvement on LEFS Target Visit 10
--- NOTE | 2023-06-14 09:09 | PTOPEVAL1 ---
Assessment and note entered by Araceli Aguirre DPT Evaluation Information Assessment Status Evaluation Diagnosis L ankle pain Onset 04/16/23 Subjective Information Patient reports he has had a bone spur for years and then developed an infection in the foot that required a debriedment. He then was having achilles pain following and under went a surgery on 04/16/23 to resect Uche deformity, removal of calcifications and debriedment of tendon tear. He was in a boot until about 2 weeks ago and now is in a tennis shoe. He has difficulty with ambulating prolonged distances and standing for prolonged periods a day. He reports prior to injury he was walking 3+ miles a day. He reports he feels like he is walking with his foot side ways and also has L knee and R hip pain. RTMD mid Fe. Reported Pain Level Pain Score 0: Self Report Assessment PT Clinical Summary Mr. Parrish is a 63 year old male who presents to PT with L ankle pain s/p surgery on 04/16/23. Patient demonstrates decreased L ankle ROM, decreased L ankle strength and impaired gait limiting his ability to grocery shop and complete house hold tasks. He would benefit from skilled PT to address impairments and return to PLOF. Plan of Care Interventions Electrical Stimulation,Gait Training,Hot Pack/Cold Pack,Manual Therapy,Neuro Re-education,Patient/ Caregiver Educati,Therapeutic Activities, Therapeutic Exercise PT Services Indicated Yes Treatment Frequency and 2x weekly for 10 visits Duration These treatments will address the objective and functional deficits as defined above. The patient will be advanced safely and appropriately in order for the patient to progress towards his/her prior level of function. Additional exercises will be introduced and as well as a comprehensive home exercise program upon discharge, if needed, ?to ensure carryover of functional gains achieved in the clinic. This treatment plan has been reviewed and agreement upon by the patient.
--- NOTE | 2023-07-06 08:37 | OPREHPOC ---
Outpatient Therapy Plan of Care This is a Multidisciplinary Plan of Care that may contain components documented by all disciplines (PT, OT, and ST.) PT Problem 1 PT Problem #1 Knowledge Deficit PT Goal 1 Goal Patient to demonstrate independence with HEP Target Visit 5 Progress Met PT Problem 2 PT Problem #2 Pain PT Goal 1 Goal Patient to report highest pain at 2/10 at end of day to improve ability to complete house hold tasks Target Visit 10 Progress Met PT Problem 3 PT Problem #3 Impaired Range of Motion PT Goal 1 Goal Patient to demosntrate 10 deg of L ankle DF AROM to improve ability to ambulate prolonged distances and navigate stairs at PLOF Target Visit 10 Progress Not Met PT Problem 4 PT Problem #4 Impaired Strength PT Goal 1 Goal Patient to demonstrate 25 L SL heel raises to improve ability to ambulate to grocery shop without rest Target Visit 10 Progress Not Met PT Problem 5 PT Problem #5 Impaired Functional Mobil PT Goal 1 Goal 1. Patient to complete 1200' during 6 min walk test 2. Patient to report ability to ambulate >1 mile to return to previous exercise level 3. Patient to demonstrate 20% improvement on LEFS Target Visit 10 Progress Partially Met Comment 1150' on 6 min walk
--- NOTE | 2023-07-06 08:37 | PTOPDC ---
Assessment and note entered by Araceli Aguirre DPT Evaluation Information Assessment Status Discharge Diagnosis L ankle pain Onset 04/16/23 Subjective Information patient reports he has improved since start of PT. He reports he is able to ambulate prolonged distances, navigate stairs and has less pain. He reports he had a knee x-ray yesterday and is hoping to get an injection. He reports independence with HEP. He is leaving for [place] on 07/08. Reported Pain Level Pain Score 0: Self Report Assessment PT Clinical Summary Mr. Parrish was seen for 7 visits of skilled PT with good progression towards goals. He has improved ankle ROM and strength, improved gait and decreased pain. He reports he has improved ambulation distances, improved ability to navigate stairs and decreased pain levels. He reports he is independent with HEP and is appropriate for DC at this time. Plan of Care PT Services Indicated No
== END 2023-07-06 09:04 | disposition home or self-care (01) ==
LOC: CHSPT 07:50
PROVIDERS: Visit Provider Nurse Practitioner
DX: Z48.89 Encounter for other specified surgical aftercare (principal); M76.62 Achilles tendinitis, left leg
CPT/HCPCS: 73562; 97110; 97140; 97150; 97161

== ENCOUNTER 2023-07-05 14:39 | Outpatient (CLI) | payer MEDICARE, SELFPAY ==
--- NOTE | ~2023-07-05 | XR_ITS ---
EXAM: XR knee LT 3V DATE: 07/05/2023 15:00 HISTORY: ANTERIOR PAIN X 20 YEARS . COMPARISON: 12/15/2017. FINDINGS: Normal mineralization. No fracture or dislocation. No lytic or blastic lesion. Severe medi al joint space narrowing. Moderate tricompartmental osteophytosis. Quadriceps enthesopathy. No erosio n or periosteal change. Scattered vascular calcifications. IMPRESSION: Tricompartmental left knee osteoarthritic arthritis, severe in the medial compartment. Reviewed, dictated and finalized at location K. PHERE PORTAL DEVELOPER
== END 2023-07-05 14:40 | disposition home or self-care (01) ==
LOC: CHSIMG 14:41
PROVIDERS: PCP Family Medicine; Visit Provider Family Medicine
DX: M17.12 Unilateral primary osteoarthritis, left knee (principal)
CPT/HCPCS: 73562

== ENCOUNTER 2024-03-02 08:44 | Outpatient (CLI) | payer MEDICARE, SELFPAY ==
[2024-03-02 08:58] LABS: Basophils Absolute Auto 0.05 K/mm3 (0.00-0.10); Basophils Percent Auto 0.5 % (0.0-1.0); Eosinophils Absolute Auto 0.23 K/mm3 (0.02-0.50); Eosinophils Percent Auto 2.3 % (1.0-6.0); Hematocrit 44.7 % (37.0-46.0); Hemoglobin 15.9 g/dL (12.4-15.3); Immature Granulocyte Absolute 0.05 K/mm3 (0.00-0.00); Immature Granulocyte Percent A 0.5 % (0.0-0.0); Lymphocytes Percent Auto 14.9 % (18.0-42.0); Mean Corpuscular HGB Conc 35.6 g/dL (32-36); Mean Corpuscular Hemoglobin 31.9 pg (27.0-31.0); Mean Corpuscular Volume 89.8 fL (78.0-102.0); Mean Platelet Volume 10.1 fl (8.7-11.0); Monocytes Absolute Auto 1.26 K/mm3 (0.10-0.90); Monocytes Percent Auto 12.5 % (2.0-11.0); Neutrophils Absolute Auto 6.98 K/mm3 (1.70-7.20); Neutrophils Percent Auto 69.3 % (50.0-70.0); Platelet Count Result 219 K/mm3 (150-420); Red Blood Count 4.98 M/mm3 (4.70-6.10); Red Cell Distribution Width 13.6 % (11.6-14.4); White Blood Count 10.1 K/mm3 (4.8-10.8)
[2024-03-02 09:49] LABS: Alanine Aminotransferase 28 U/L (16-63); Albumin Level 3.6 g/dL (3.4-5.0); Alkaline Phosphatase 93 U/L (46-116); Anion Gap 10 mmol/L (4-12); Aspartate Amino Transferase 12 U/L (15-37); Bilirubin,Total 0.8 mg/dL (0.00-1.00); Blood Urea Nitrogen 17 mg/dL (7-18); Carbon Dioxide 28 mmol/L (21-32); Chloride 101 mmol/L (98-108); Estimated Glomerular Filt Rate > 60; Glucose 114 mg/dL (70-99); Osmolality Calculated 290 mOsm/kg (285-295); Potassium 4.3 mmol/L (3.5-5.1); Prostate Specific Antigen 2.5 ng/mL (< OR = 4.0); Sodium 139 mmol/L (136-145); Total Protein 6.6 g/dL (6.4-8.2)
[2024-03-02 09:57] LABS: Thyroid Stimulating Hormone Reflex 1.92 u/IU/mL (0.36-3.74)
[2024-03-02 11:24] LABS: Hemoglobin A1C 5.2 % (<5.7)
== END 2024-03-02 08:45 | disposition home or self-care (01) ==
LOC: CHSLAB 08:48
PROVIDERS: PCP Family Medicine; Visit Provider Family Medicine
DX: R35.1 Nocturia (principal); E03.9 Hypothyroidism, unspecified; G47.33 Obstructive sleep apnea (adult) (pediatric); E11.9 Type 2 diabetes mellitus without complications; I10 Essential (primary) hypertension; Z12.5 Encounter for screening for malignant neoplasm of prostate
CPT/HCPCS: 36415; 80053; 83036; 84153; 84443; 85025; G0103

== ENCOUNTER 2024-08-31 07:24 | Outpatient (CLI) | payer MEDICARE, SELFPAY ==
--- OUTSIDE RECORDS SUMMARY | 2024-08-31 07:28 | XMS_ITS | Clinical Summary ---
Author Organization [facility] Address [address] [place] [address] Care Team Providers Care Cnc Field Service Engineer Name Role Phone Harsha Bravo DO Primary Care Provider [phone] Allergies No known active allergies Medications multi vitamin/minera ls (THERA-M ENHANCED) tabletIndicati ons:Nutritiona l Support Take 1 tablet by mouth daily. Indications: Nutritional Support Active folic acid (FOLVITE) 1 MG tabletIndicati ons:Nutritiona l Support Take 1 tablet by mouth daily. Indications: Nutritional Support Active aspirin 81 MG chewable tabletIndicati ons:Anticoagul ant Therapy Chew 1 tablet by mouth daily. Indications: Anticoagulant Therapy Active HYDROcodone-ac etaminophen (NORCO) 5-325 MG tabletIndicati ons:Acute Pain < 7 Day Supply Take 0.5-1 tablets by mouth every 6 (six) hours as needed for Pain (second line if acetaminophen is not effective. Do not take more than 5 tablets a day). Indications: Acute Pain < 7 Day Supply 10 tablet 3 Active acetaminophen (TYLENOL) 325 MG tabletIndicati ons:Pain Take 2 tablets (650 mg total) by mouth every 6 (six) hours as needed for Pain (first line for pain, do not take more than 3 gm(3000mg) per day). Do not take more Than 3250 mg per 24 hours 30 tablet 3 Active naloxone (NARCAN) 4 MG/0.1ML nasal sprayIndicatio ns:Opioid Overdose 1 spray by Nasal route as needed for Opioid reversal. For narcotic reversal, if overdose is suspected- excessive drowsiness, unresponsiveness, breathing difficulty, cardiac arrrest, respiratory arrest 1 each 3 Active Resolved Problems Problem Noted Date Diagnosed Date Resolved Date Cellulitis of left foot 01/02/2023 08/2 07/2022 Family History Medical History Relation Comments Hypertension Father Hypertension Mother Diabetes Paternal Grandmother Relation Status Comments Father Mother Paternal Grandmother Social History Tobacco Use Types Packs/Day Years Used Date Smoking Tobacco: Never Smokeless Tobacco: Never Tobacco Cessation:Counseling Given: Not Answered Sex and Gender Information Value Date Recorded Sex Assigned at Not on file Legal Sex Male 1:13 PM CDT Gender Identity Not on file Sexual Orientation Not on file Last Filed Vital Signs Vital Sign Reading Time Taken Comments Blood Pressure 134/78 01/08/2023 1:27 PM CDT Pulse 92 01/08/2023 1:26 PM CDT Temperature 35.9 C (96.6 F) 01/08/2023 1:26 PM CDT Respiratory Rate 18 01/08/2023 1:26 PM CDT Oxygen Saturation 98% 01/08/2023 1:26 PM CDT room air Inhaled Oxygen Concentration - - Weight 113.3 kg (249 lb 12.5 oz) 01/02/2023 4:30 PM CDT Height 182.9 cm (6') 01/02/2023 4:30 PM CDT Body Mass Index 33.88 01/02/2023 4:30 PM CDT Plan of Treatment Health Maintenance Due Date Last Done Comments Colorectal Cancer Screening Colonoscopy (10 Years) 1960 Hepatitis C 02/10/1976 Zoster Vaccines (1 of 2) 02/10/2008 Pneumococcal Vaccine: 50+ Years (1 of 1 - PCV) 2023 COVID-19 Vaccine (3 - 2023-2 5 season) 2024 11/29/2020, 11/08/2020 DTaP, Tdap and Td Vaccines ( 3 - Td or Tdap) 12/31/2032 12/31/2022, 11/21/2013 RSV Immunization or 60+ Years (1 - 1-dose 75+ series) 2033 Meningococcal B Vaccine Aged Out No l onger eligible based on patient's age to complete this topic Meningococcal Vaccine Aged Out No gianna laurie eligible based on patient's age to complete this topic RSV Immunizations Under 20 Months Aged Out No longer eligible b ased on patient's age to complete this topic Goals Goal Patient Goal Type Associated Problems Recent Progress Patient-Stated? Author Family - family caregiver with be involved in care transitions and discharge planning Lifestyle No Aleena Blandon, RN Insurance [facility] Advance Directives * Full Code (Latest Code Status on File) Date Activated Date Inactivated Comments 01/08/2023 10:36 PM * Full Code Date Activated Date Inactivated Comments 01/02/2023 5:15 PM 01/06/2023 4:25 PM Care Teams Cnc Field Service Engineer Relationship Specialty Start Date End Date Harsha Bravo DO [address] [place] [address] PCP - General FAMILY PRACTICE 12/15/22
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
--- OUTSIDE RECORDS SUMMARY | 2024-08-31 07:28 | XMS_ITS | Referral Summary ---
Author Organization [facility] Address [address] [place] [address] Care Team Providers Care Auto Body Repairman Name Role Phone Huma Rudolph DPM Primary Care Provider [phone] Allergies No known active allergies Medications folic [...] Acquired cavovarus foot deformity, left 03/31/20 23 Social History Tobacco Use Types Packs/Day Years [...] AM CDT Sexual Orientation Not on file Last Filed Vital Signs Vital Sign Reading Time Taken Comments Blood Pressure 137/82 04/16/2023 3:15 PM GENETICS PHYSICIAN Pulse 66 04/16/2023 3:15 PM GENETICS PHYSICIAN Temperature 36.3 C (97.4 F) 04/16/2023 3:15 PM GENETICS PHYSICIAN Respiratory Rate 20 04/16/2023 3:15 PM GENETICS PHYSICIAN Oxygen Saturation 98% 04/16/2023 3:15 PM GENETICS PHYSICIAN Inhaled Oxygen Concentration - - Weight 122.9 kg (270 lb 15.1 oz) 04/16/2023 9:27 AM GENETICS PHYSICIAN Height 182.9 cm (6') 04/16/2023 9:27 AM GENETICS PHYSICIAN Body Mass Index 36.75 04/16/2023 9:27 AM GENETICS PHYSICIAN Plan of Treatment Not on file Medical Devices Implanted Type Area Dumper Mold Cleaner Device Identifier Shelf Expiration Date Model / Serial / Lot [employer] Suturebridge [place] Drill Guide Punch Tap Set Implant Achilles [id number] - [id number] Implanted:Qty: 1 on 04/16/2023 by Huma Rudolph DPM at [facility] Left: Achilles Tendon [employer] 12/14/2026 [id number] / / [id number] Insurance MEDICARE [facility] Care Teams Auto Body Repairman Relationship Specialty Start Date End Date Huma Rudolph DPM [address] [place] [id number] PCP - General Foot and Ankle Surg 02/05/23
[2024-08-31 08:26] LABS: Prostate Specific Antigen 2.2 ng/mL (< OR = 4.0)
== END 2024-08-31 07:25 | disposition home or self-care (01) ==
LOC: CHSLAB 07:26
PROVIDERS: PCP Family Medicine; Visit Provider Family Medicine
DX: N52.9 Male erectile dysfunction, unspecified (principal); R35.1 Nocturia
CPT/HCPCS: 36415; 84153; 84402; 84403